=== PATIENT | female | born 1995 | race Caucasian/White ===

== ENCOUNTER 2017-06-01 12:59 | Emergency (ER) | payer OTHER ==
[~2017-06-01] VITALS: Ht 154.9 cm; Wt 81.7 kg
[2017-06-01] MEDS ORDERED: DOXYCYCLINE HY100 MG PO (13:30)
[2017-06-01] MEDS ORDERED: CIPRO500 MG PO (14:07)
== END 2017-06-01 14:13 | disposition home or self-care (01) ==
LOC: ED 12:59
DX: N39.0 Urinary tract infection, site not specified (principal); Z88.0 Allergy status to penicillin
CPT/HCPCS: 81001; 84703; 99283